=== PATIENT | female | born 1935 | race Two or more races ===

== ENCOUNTER 2024-10-20 15:30 | Emergency (ER) | payer MEDICARE, OTHER ==
[~2024-10-20] VITALS: Ht 162.6 cm; Wt 78.2 kg
--- NOTE | 2024-10-20 16:19 | ED.PDOC ---
Akash. trauma (HPI) HPI Comments 89 y/o F, presents to the ED for CC of s/p fall head injury. Patient states, that she went to place her elbow on her counter when she missed causing her to land onto her right knee, fall over, and hit her head against the tile. Patient relays, that she has poor central vision and believes that fall was due to this. Patient complains of current headache, pain at the Posterior aspect of her head, and right knee pain. patient is able to ambulate. Patient denies open wounds, LOC, dizziness, nausea, or vomiting. Chief Complaint: Head Injury Time Seen by MD: 15:50 Reviewed notes: Nurses Notes, Medications, Allergies Allergies: Coded Allergies: Penicillins (Verified Allergy, Unknown, 10/20/24) Information Source: Patient Mode of Arrival: Ambulatory Severity: Moderate Timing: Minutes Duration: Since onset Prehospital treatment: None Location: Head Mechanism: Fall Associated signs and symtoms: Headache Past Medical History PAST MEDICAL HISTORY: Denies Surgical History: Denies all surgeries CONCESSION ATTENDANT History: Unknown Family History Family History: Unknown Social History Smoker: Non-Smoker Alcohol: Denies ETOH Use Drugs: Denies Drug Use Lives In: Home Constitutional: denies: chills, diaphoresis, fatigue, fever, malaise, sweats, weakness, others EENTM: denies: blurred vision, double vision, ear bleeding, ear discharge, ear drainage, ear pain, ear ringing, eye pain, eye redness, hearing loss, mouth pain, mouth swelling, nasal discharge, nose bleeding, nose congestion, nose pain, photophobia, tearing, throat pain, throat swelling, voice changes, others Respiratory: denies: cough, hemoptysis, orthopnea, SOB at rest, shortness of breath, SOB with excertion, stridor, wheezing, others Cardiovascular: denies: chest pain, dizzy spells, diaphoresis, Dyspnea on exert ion, edema, irregular heart beat, left arm pain, lightheadedness, palpitations, PND, syncope, others Gastrointestinal: denies: abdomen distended, abdominal pain, blood streaked bowels, constipated, diarrhea, dysphagia, difficulty swallowing, hematemesis, melena, nausea, poor appetite, poor fluid intake, rectal bleeding, rectal pain, vomiting, others Genitourinary: denies: abnormal vagina bleeding, burning, dyspareunia, dysuria, flank pain, frequency, hematuria, incontinence, pain, , vagina discharge, urgency, others Neurological: reports: headache; denies: dizziness, fainting, left sided numbness, left sided weakness, numbness, paresthesia, pre-existing deficit, ri ght sided numbness, right sided weakness, seizure, speech problems, tingling, tremors, weakness, others Musculoskeletal: reports: others (right knee pain); denies: back pain, gout, joint pain, joint swelling, muscle pain, muscle stiffness, neck pain Integumetry: denies: bruises, change in color, change in hair/nails, dryness, laceration, lesions, lumps, rash, wounds, others Allergic/Immunocompromised: denies: Difficulty Healing, Frequent Infections, Hives, Itching, others Hematologic/Lymphatic: denies: anemia, blood clots, easy bleeding, easy bruising, swollen glands, others Endocrine: denies: excessive hunger, excessive sweating, excessive thirst, excessive urination, flushing, intolerance to cold, intolerance to heat, unexplained weight gain, unexplained weight loss, others Psychiatric: denies: anxiety, bipolar disorder, depression, hopeless, panic disorder, schizophrenia, sleepless, suicidal, others All Other Systems: Reviewed and Negative Physical Exam General Appearance: Moderate Distress ([id number] distress due to headache and minimal knee pain concerns.) HEENT: Head ( Patient displays a moderate sized hematoma to the posterior scalp, superior to the occipital lobe. No skull depressions or deformities. No blood loss.), Normal ENT Inspection, Pharynx Normal, TMs Normal Neck: Full Range of Motion, Non-Tender, Normal, Normal Inspection Respiratory: Chest Non-Tender, Lungs Clear, No Accessory Muscle Use, No Respiratory Distress, Normal Breath Sounds Cardiovascular: No Edema, No JVD, No Murmur, No Gallop, Normal Peripheral Pulses, Regular Rate/Rhythm Breast Exam: Deferred Gastrointestinal: No Organomegaly, Non Tender, No Pulsatile Mass, Normal Bowel Sounds, Soft Genitalia: Deferred Pelvic: Deferred Rectal: Deferred Extremities: Other ( Relatively unremarkable evaluation of right knee. Possible mild edema noted. Full range of motion displayed. No ecchymosis or abrasions.) Neurologic: Alert, No Motor Deficits, Normal Affect, Normal Mood, No Sensory Deficits Cerebellar Function: Normal Reflexes: Normal Skin: Dry, Normal Color, Warm Lymphatic: No Adenopathy Was a procedure done? Was a procedure done?: No Differential Diagnosis Multiple Trauma: Closed Head Injury, Hematoma, Other ( Subarachnoid hemorrhage, subdural hematoma, skull fracture) X-Ray, Labs, Meds, VS Vital Signs Date Time Temp Pulse Resp B/P (MAP) Pulse Ox O2 Delivery O2 Flow Rate FiO2 10/20/24 18:20 98.4 78 16 157/78 (104) 98 98.4 10/20/24 15:43 97.0 69 20 194/78 (116) 98 97.0 Current Medications Medications (Trade) Dose Ordered Sig/Susan Route Start Time Stop Time Status Last Admin Acetaminophen/ Hydrocodone Bitart ([place] 5/325MG Tab) 1 tab ONCE ONCE PO 10/20/24 16:00 10/20/24 16:01 DC 10/20/24 18:15 X-Ray, Labs, Meds, VS Comment All studies performed the ED were evaluated by me personally. CT of the head w as unremarkable for any acute intracranial processes or skull fracture. Patient sustained head trauma due to her fall. Advised patient utilize pain medication as needed as well as ice therapy as tolerated. Time of 1ST Reevaluation: 18:36 Reevaluation 1ST: Improved Consultation: PCP Patient Education/Counseling: Diagnosis, Treatment Family Education/Counseling: Diagnosis, Treatment, No Family Present Departure 1 Departure Time of Disposition: 18:36 Impression: Primary Impression: Head trauma Additional Impressions: Hematoma Knee contusion Disposition: HOME / SELF CARE / HOMELESS Condition: Stable Additional Instructions: Advised patient utilize pain medication as needed as well as ice therapy. e-Prescriptions Acetaminophen (Acetaminophen) 500 Mg Tab 500 MG PO Q4HP PRN, #30 TAB Prov: JAYE SIMMONS PAC 10/20/24 Ibuprofen Micronized (Ibuprofen) 600 Mg Tab 600 MG PO Q6HP PRN, #20 TAB Prov: JAYE SIMMONS PAC 10/20/24 Discharged With: Self, Friend Critical Care Note Critical Care Time?: No Stability Stability form required: No Heart Score Heart Score: Heart Score Response (Comments) Value History N/A 0 EKG N/A 0 Age N/A 0 Risk Factors N/A 0 Troponin N/A 0 Total 0 I personally scribed [facility] on 10/20/24 at 16:19. Electronically submitted by Pratibha Hager ([email or web address]). JAYE SIMMONS PAC Oct 20, 2024 16:19
--- NOTE | 2024-10-20 18:14 | DVH ---
EXAM: CT HEAD WITHOUT CONTRAST INDICATION: Fall/ head trauma TECHNIQUE: CT of the head without intravenous contrast. Radiation Dose Information: CT Dose: CTDI volume is 56.18 mGy. Dose-length product is 900.63 mGy*cm The dose indicators for CT are the volume Computed Tomography (CT) Dose Index (CTDIvol) and the Dose Length Product (DLP), and are measured in units of mGy and mGy-cm, respectively. These indicators are not patient dose, but values generated from the CT scanner acquisition factors. The report includes radiation exposure data for exposures received during this examination. COMPARISON: None FINDINGS: There is no evidence of acute intracranial hemorrhage, extra-axial collection, mass effect, midline s hift, herniation or hydrocephalus. The ventricles, sulci and cisterns are age appropriate. The reynolds-white differentiation is intact. Patchy periventricular and subcortical white matter hypoattenuation is nonspecific but may be related to small vessel ischemic disease. The visualized paranasal sinuses and mastoid air cells are clear. The surrounding soft tissues and osseous structures are unremarkable. IMPRESSION: 1. No acute intracranial hemorrhage. 2. No CT findings of territorial ischemia. 3. No CT findings of displaced skull fracture. 4. Small air-fluid level left maxillary sinus. 5. Hyperostosis frontalis interna.
[2024-10-20] MEDS: HYDROcodone-ACET 5/325MG TAB PO ONE (18:15)
[2024-10-20 18:20] VITALS: BP 157/78; PULSE 78; RESP 16; TEMP 98.4; O2SAT 97
[2024-10-20] MEDS ORDERED: ACET500T58 PO (18:37)
[2024-10-20] MEDS ORDERED: IBUP1TAB5 PO (18:37)
== END 2024-10-20 18:53 | disposition home or self-care (01) ==
LOC: ER 15:30
DX: S80.01XA Contusion of right knee, initial encounter (principal); S09.90XA Unspecified injury of head, initial encounter; Z88.0 Allergy status to penicillin; W22.8XXA Striking against or struck by other objects, initial encounter; Y93.89 Activity, other specified; Y92.89 Other specified places as the place of occurrence of the external cause; Y99.8 Other external cause status
CPT/HCPCS: 70450